=== PATIENT | male | born 1975 | race Caucasian/White ===

== ENCOUNTER 2019-03-22 23:08 | Emergency (ER) | payer OTHER ==
--- NOTE | 2019-03-23 01:31 | ED ---
Abdominal Pain/Male - HPI Summary HPI Summary: This pt is a 43 y/o M presenting to [facility] with a CC of bilateral flank pain which is worse on the L side. He states that the pain radiates across his suprapubic region and his lower back and is rated a 2/10 in severity. He stated that the pain started a couple days prior to 03/23/19 and has not gone away. He states that the pain waxes and wanes throughout the day. He reports that he has had an increase in frequency of urination and that his urine is darker than normal. He denies any fevers, N/V/D, dysuria, and CP. He has no aggravating or alleviating factors. He has a Hx of renal calculi but stated he has not had any for around 10 years. - History of Current Complaint Chief Complaint: EDPrettyin Stated Complaint: FLANK PAIN PER PT Time Seen by Provider: 03/23/19 00:34 Hx Obtained From: Patient Onset/Duration: Gradual Onset, Lasting Days, Still Present Timing: Constant Severity Initially: Moderate Severity Currently: Mild Pain Intensity: 2 Pain Scale Used: 0-10 Numeric Location: Flank - bilateral, worse on the left side Radiates: Yes Radiates to: Back - lower, Other - across the suprapubic region Aggravating Factor(s): Nothing Alleviating Factor(s): Nothing Associated Signs And Symptoms: Positive: Negative - dysuria, Back Pain, Urinary Symptoms - darker and more frequent urine. Negative: Fever, Chest Pain, Nausea , Vomiting, Diarrhea - Allergies/Home Medications Allergies/Adverse Reactions: Allergies Allergy/AdvReac Type Severity Reaction Status Date / Time No Known Allergies Allergy Verified 03/22/19 23:17 PMH/Surg Hx/FS Hx/Imm Hx Previously Healthy: No Infectious Disease History: No Infectious Disease History: Reports: Traveled Outside the [place] in Last 30 Days - [place] - Social History Alcohol Use: Weekly Substance Use Type: Reports: Marijuana Substance Use Comment - Amount & Last Used: occasionally Smoking Status (MU): Never Smoked Tobacco Review of Systems Negative: Fever Positive: Abdominal Pain - suprapubic, radiated from the flanks. Negative: Vomiting, Diarrhea, Nausea Positive: frequency, flank pain, other - urine is darker. Negative: dysuria Positive: Other - radiated low back pain All Other Systems Reviewed And Are Negative: Yes Physical Exam - Summary Physical Exam Summary: VITAL SIGNS: Reviewed. GENERAL: Patient is a well-developed and nourished male who is lying comfortable in the stretcher. Patient is not in any acute respiratory distress. HEAD AND FACE: No signs of trauma. No ecchymosis, hematomas or skull depressions. No sinus tenderness. EYES: PERRLA, EOMI x 2, No injected conjunctiva, no nystagmus. EARS: Hearing grossly intact. Ear canals and tympanic membranes are within normal limits. MOUTH: Oropharynx within normal limits. NECK: Supple, trachea is midline, no adenopathy, no JVD, no carotid bruit, no c- spine tenderness, neck with full ROM CHEST: Symmetric, no tenderness at palpation LUNGS: Clear to auscultation bilaterally. No wheezing or crackles. CVS: Regular rate and rhythm, S1 and S2 present, no murmurs or gallops appreciated. ABDOMEN: Soft, non-tender. No signs of distention. No rebound no guarding, and no masses palpated. Bowel sounds are normal. EXTREMITIES: FROM in all major joints, no edema, no cyanosis or clubbing. NEURO: Alert and oriented x 3. No acute neurological deficits. Speech is normal and follows commands. SKIN: Dry and warm Triage Information Reviewed: Yes Vital Signs On Initial Exam: Initial Vitals Temp Pulse Resp BP Pulse Ox 97.7 F 89 16 196/108 98 03/22/19 23:10 03/22/19 23:10 03/22/19 23:10 03/22/19 23:10 03/22/19 23:10 Vital Signs Reviewed: Yes Diagnostics - Vital Signs Vital Signs Temp Pulse Resp BP Pulse Ox 03/23/19 01:08 98.3 F 140/101 03/22/19 23:10 97.7 F 89 16 196/108 98 - Laboratory Result Diagrams: 03/23/19 01:51 03/23/19 01:51 Lab Statement: Any lab studies that have been ordered have been reviewed, and results considered in the medical decision making process. - CT CT A/P CT Interpretation Completed By: Radiologist Summary of CT Findings: 1. Minimally obstructing 7 mm calculus proximal third left ureter. 2. Left lower lobe pneumonia. ED physician has reviewed this report. Abdominal Pain Male Course/Dx - Course Course Of Treatment: This pt is a 43 y/o M presenting to [facility] with a CC of bilateral flank pain that is more severe on the L side. He states that the pain radiates across his suprapubic region and to his low back. His PE shows that he has no acute processes. His CT A/P showed that he has 1. Minimally obstructing 7 mm calculus proximal third left ureter. 2. Left lower lobe pneumonia. - Diagnoses Provider Diagnoses: Pneumonia, Kidney stones Discharge - Sign-Out/Discharge Documenting (check all that apply): Patient Departure - discharge Patient Received Moderate/Deep Sedation with Procedure: No - Discharge Plan Condition: Stable Disposition: HOME Prescriptions: Levofloxacin TAB* [Levaquin TAB*] 750 mg PO DAILY #7 tab oxyCODONE/Acetamin 5/325 MG* [Percocet 5/325 TAB*] 1 tab PO Q6H PRN #14 tab MDD 4 PRN Reason: Pain Patient Education Materials: Pneumonia (ED), Kidney Stones (ED) Referrals: [facility] [Outside] - 2 Days Sandor Daniel MD [Medical Doctor] - 2 Days Additional Instructions: Please take the medications as directed and follow up with both Dr. Daniel, Urology, and [facility] in 2-3 days. Return to the emergency department with any new or worsening symptoms. - Attestation Statements Document Initiated by Scribe: Yes Documenting Scribe: Erwin Haile Provider For Whom Scribe is Documenting (Include Credential): Nessa Deal MD Scribe Attestation: Erwin Roblero, scribed for Nessa Deal MD on 03/23/19 at 0303. Status of Scribe Document: Ready
[2019-03-23] MEDS ORDERED: NS 0.9% 1000 ML** 1,000 ML IV ONE (01:39)
[2019-03-23 01:41] LABS: Urine Appearance Clear; Urine Bacteria Absent (Absent); Urine Bilirubin Negative (Negative); Urine Blood 2+ (Negative); Urine Color Yellow; Urine Glucose Negative (Negative); Urine Ketones Negative (Negative); Urine Nitrite Negative (Negative); Urine Protein Negative (Negative); Urine Red Blood Cell 3+(>10/hpf) (Absent); Urine Specific Gravity 1.013 (1.010-1.030); Urine Urobilinogen Negative (Negative); Urine White Blood Cell Absent (Absent)
[2019-03-23 01:59] LABS: ABS Eosinophils 0.1 10^3/ul (0-0.6); ABS Lymphocytes 1.9 10^3/ul (1.0-4.8); ABS Monocytes 0.8 10^3/ul (0-0.8); ABS Neutrophils 1.8 10^3/ul (1.5-7.7); Eosinophil % 2.5 %; Hematocrit 46 % (42-52); Hemoglobin 15.8 g/dL (14.0-18.0); Lymphocyte % 40.6 %; Mean Corpuscular HGB Conc 34 g/dL (31-36); Mean Corpuscular Hemoglobin 31 pg (27-31); Mean Corpuscular Volume 91 fL (80-94); Mean Platelet Volume 7.9 fL (7.4-10.4); Nucleated Red Blood Cells % 0.1; Platelet Count 176 10^3/uL (150-450); Red Blood Count 5.08 10^6 /uL (4.18-5.48); Red Cell Distribution Width 13 % (10-15); White Blood Count 4.6 10^3/uL (3.5-10.8)
[2019-03-23 02:17] LABS: Albumin 4.5 g/dL (3.2-5.2); Albumin/Globulin Ratio 1.5 (1-3); BUN/Creatinine Ratio 16.5 (8-20); C Reactive Protein 8.11 mg/L (<8.01); Calcium 9.6 mg/dL (8.6-10.3); EGFR African American 111.1 (>60); EGFR Non-African American 91.8 (>60); Globulin 3.1 g/dL (2-4); Potassium 3.8 mmol/L (3.5-5.0); Total Bilirubin 0.4 mg/dL (0.2-1.0); Total Protein 7.6 g/dL (6.4-8.9)
[2019-03-23 02:49] VITALS: BP 131/92
[2019-03-23] MEDS ORDERED: Levofloxacin TAB* 250 MG PO ONE (03:00)
== END 2019-03-23 03:23 | disposition home or self-care (01) ==
LOC: ED 23:08
DX: J18.9 Pneumonia, unspecified organism (principal); N20.1 Calculus of ureter
CPT/HCPCS: 36415; 74176; 80053; 81003; 81015; 82150; 83690; 85025; 86140; 96360; 99283; A9270-GY

== ENCOUNTER 2019-04-01 21:34 | Emergency (ER) | payer OTHER ==
--- NOTE | 2019-04-01 21:44 | UC ---
Lower Extremity/Ankle HPI - HPI Summary HPI Summary: Fell forward while grilling, L foot ended up underneath him. Pain in ankle and foot, felt toes go out as well. No p/d/w Occurred approx 6:30pm. No other injury. Pain progressed over several hours with foot downwards, prompting visit here. Hurts to bear weight. - History of Current Complaint Stated Complaint: ANKLE INJURY Time Seen by Provider: 04/01/19 21:36 Hx Obtained From: Patient - Allergies/Home Medications Allergies/Adverse Reactions: Allergies Allergy/AdvReac Type Severity Reaction Status Date / Time No Known Allergies Allergy Verified 04/01/19 21:41 PMH/Surg Hx/FS Hx/Imm Hx Previously Healthy: Yes - Family History Known Family History: Positive: None - Social History Alcohol Use: Weekly Substance Use Type: Marijuana Substance Use Comment - Amount & Last Used: occasionally Smoking Status (MU): Never Smoked Tobacco Review of Systems All Other Systems Reviewed And Are Negative: Yes Constitutional: Positive: Negative Skin: Positive: Negative Eyes: Positive: Negative ENT: Positive: Negative Respiratory: Positive: Negative Cardiovascular: Positive: Negative Gastrointestinal: Positive: Negative Genitourinary: Positive: Negative Motor: Positive: Other - see hpi Neurovascular: Positive: Other - see hpi Musculoskeletal: Positive: Other: - see hpi Neurological: Positive: Negative Psychological: Positive: Negative Is Patient Immunocompromised?: No Physical Exam Triage Information Reviewed: Yes Appearance: Well-Appearing, Well-Nourished Vital Signs Reviewed: Yes Eye Exam: Normal ENT Exam: Normal Dental Exam: Normal Neck exam: Normal Respiratory Exam: Normal Cardiovascular Exam: Normal Abdominal Exam: Normal Musculoskeletal Exam: Other - Foot warm to touch, + distal sens LT, good cap refill Tender ankle and dorsal foot, and echymosis L dorsal foot. No prox tib fib tenderness. Neurological Exam: Normal Psychological Exam: Normal Skin Exam: Other - see "musc skel" Lower Extremity Course/Dx - Course Course Of Treatment: Reviewed xrays with pt and renal nurse. No fx noted; however, radiology report n/ y available, d/w pt. Declines cam boot. Crutches, mason / gel splint. Ibuprofen here. 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 Pt has been very active, recently a runner. Will Refer to Sports Med. Also orthopedics (suspect deep foot injury). Questions as posed answered to the best of my ability. Declines work note. - Differential Dx/Diagnosis Provider Diagnosis: Foot sprain, Ankle sprain Discharge - Sign-Out/Discharge Documenting (check all that apply): Patient Departure All imaging exams completed and their final reports reviewed: No - Discharge Plan Condition: Stable Disposition: HOME Prescriptions: Ibuprofen TAB* [Motrin TAB* 600 MG] 600 mg PO Q8H PRN #30 tab PRN Reason: Pain Patient Education Materials: Ankle Sprain (ED), Crutch Instructions (ED), Foot Sprain (ED) Referrals: Jose Antonio Sloan [Medical Doctor] - Karen Deng MD [Primary Care Provider] - Christian Proctor MD [Medical Doctor] - Additional Instructions: Your xray will be read by the radiologist tomorrow. Please stay off your foot as much as possible. Elevate frequently. Follow up with your primary care provider, per routine. Follow up with orthopedic surgeon 1-2 weeks. Sooner if worse or new pain. Follow up with Sports medicine, next available. Seek medical attention for any worse or new issues. - Billing Disposition and Condition Condition: STABLE Disposition: Home
[2019-04-01 21:55] VITALS: BP 142/95
[2019-04-01] MEDS: Ibuprofen TAB* 600 MG PO ONE (22:13)
--- NOTE | 2019-04-02 11:04 | UC ---
- Progress Note Progress Note: RADIOLOGY REPORT REVIEWED. CONFIRMS NO FRACTURE. PATIENT NOTIFIED. NO CHANGE IN MANAGEMENT. Course/Dx - Diagnoses Provider Diagnoses: Foot sprain, Ankle sprain Discharge - Sign-Out/Discharge Documenting (check all that apply): Post-Discharge Follow Up All imaging exams completed and their final reports reviewed: Yes - Discharge Plan Condition: Stable Disposition: HOME Prescriptions: Ibuprofen TAB* [Motrin TAB* 600 MG] 600 mg PO Q8H PRN #30 tab PRN Reason: Pain Patient Education Materials: Ankle Sprain (ED), Crutch Instructions (ED), Foot Sprain (ED) Referrals: Jose Antonio Sloan [Medical Doctor] - Karen Deng MD [Primary Care Provider] - Christian Proctor MD [Medical Doctor] - Additional Instructions: Your xray will be read by the radiologist tomorrow. Please stay off your foot as much as possible. Elevate frequently. Follow up with your primary care provider, per routine. Follow up with orthopedic surgeon 1-2 weeks. Sooner if worse or new pain. Follow up with Sports medicine, next available. Seek medical attention for any worse or new issues. - Billing Disposition and Condition Condition: STABLE Disposition: Home
== END 2019-04-01 22:20 | disposition home or self-care (01) ==
LOC: UCEAST 21:34
DX: S93.402A Sprain of unspecified ligament of left ankle, initial encounter (principal); S96.912A Strain of unspecified muscle and tendon at ankle and foot level, left foot, initial encounter; W19.XXXA Unspecified fall, initial encounter; Y93.G2 Activity, grilling and smoking food; Y92.9 Unspecified place or not applicable
CPT/HCPCS: 99213; A9270-GY; G0463

== ENCOUNTER → 2019-04-12 09:41 | Day surgery (SDC) | payer OTHER ==
--- NOTE | 2019-04-09 09:27 | HP ---
CC: Dr. Karen Deng; Dr. Daniel* ADMITTING HISTORY AND PHYSICAL: DATE OF ADMISSION: 04/12/19 ADMITTING DIAGNOSES: 1. Calculus, left ureter. 2. Left hydronephrosis. PLANNED PROCEDURE: Left ureteroscopy, possible laser, and stent insertion. SURGEON: Dr. Daniel. HISTORY OF PRESENT ILLNESS: Vasyl Elaine is a 43-year-old gentleman who has had episodic left flank pain for the last 2 to 3 weeks secondary to approximately a 7- mm calculus in the left ureter. He has been managed conservatively and on a recent sonogram still had persistent left hydronephrosis. I gave him the option of trying to continue conservative management, but at the present time he would like to go ahead and proceed with left ureteroscopy. I am scheduling this procedure for 4 to 5 days out into the future again to give him more time to hopefully pass the calculus. PAST MEDICAL HISTORY: Significant for hypertension. PAST SURGICAL HISTORY: Negative. MEDICATIONS ON ADMISSION: Analgesics on a p.r.n. basis for the last 2 to 3 weeks. ALLERGIES: No known drug allergies. FAMILY HISTORY: His grandfather and sister have had kidney stones. SOCIAL HISTORY: Smoking history: He is a nonsmoker. REVIEW OF SYSTEMS: He is otherwise in excellent health. There is no history of diabetes mellitus or any other major systemic illness. PHYSICAL EXAMINATION GENERAL: Reveals a pleasant healthy-appearing young gentleman. VITAL SIGNS: Blood pressure is 104/68, pulse 92 per minute and regular, temperature 98.3, oxygen saturation 97% on room air. LUNGS: Clear bilaterally. CARDIOVASCULAR: Regular rate and rhythm. S1, S2. ABDOMEN: Soft with mild left flank tenderness. IMPRESSION: A 43-year-old gentleman with a 2 to 3 week history of episodic left flank discomfort secondary to an approximately 7-mm calculus in the left ureter. PLAN: Planned procedure is left ureteroscopy, possible laser and stent insertion. [id number]/[facility] #: [id number] [facility]
[~2019-04-12 09:41] MED LIST: Buffered Lidocaine 1% SYRIN* 1 ML/SYRINGE INTRADERM ONE; Dexamethasone IV* 4 MG/ML 1 ML (4 MG) IV SLOW PU ONE; Dexamethasone IV* 4 MG/ML 1 ML (4 MG) ONE; DiMENhydriNATE IV* 50 MG/ML VIAL IV PUSH PRN; Famotidine IV* 10 MG/ML 2 ML (20 mg) IV ONE; Famotidine IV* 10 MG/ML 2 ML (20 mg) ONE; Iohexol 180 (CONTRAST) 10 ML SDV IV ONE; Ketorolac INJ* 30 MG/ML 1 ML VIAL IV PRN; Ketorolac INJ* 30 MG/ML 1 ML VIAL ONE; Lactated Ringers 1000 ML Bag* 1,000 ML IV SCH; Midazolam* 1 MG/ML 2 ML VIAL (2 MG) ONE; Naloxone* 0.4 MG/ML 1 ML VIAL IV PRN; Ondansetron INJ* 2 MG/ML VIAL ONE; Propofol* 10 MG/ML 20 ML BTL ONE; Tamsulosin CAP* 0.4 MG ONE; cefTRIAXone(*) 2 GM ADDV.VIAL IVPB ONE; fentaNYL* 50 MCG/ML 2 ML VIAL (100 MCG VIAL) IV PRN; fentaNYL* 50 MCG/ML 2 ML VIAL (100 MCG VIAL) ONE; oxyCODONE/Acetamin 5/325 MG* TAB ONE
[2019-04-12 14:01] VITALS: BP 125/83
--- NOTE | 2019-04-12 15:24 | OP ---
CC: Dr. Karen Deng * DATE OF OPERATION: 04/12/19 - [facility] DATE OF : 79 SURGEON: Sandor Daniel MD ANESTHESIOLOGIST: Dr. Clarke. ANESTHESIA: General. PRE-OP DIAGNOSIS: Calculus, left ureter. POST-OP DIAGNOSIS: Calculus, left ureter. OPERATIVE PROCEDURE: Cystoscopy, left retrograde pyelogram, left ureteroscopy, laser lithotripsy of left ureteral calculus and removal of calculus fragments, and left stent insertion. COMPLICATIONS: None. STENT USED: A 6-Polish stent, left ureter. POSTOPERATIVE CONDITION: Stable. OPERATIVE FINDINGS: Approximately 6 to 7 mm calculus, left distal ureter. INDICATIONS: Vasyl Elaine is a 43-year-old gentleman, who has had episodic left flank pain for the last several weeks secondary to a persistent calculus in the left ureter. DESCRIPTION OF PROCEDURE: After induction of general anesthesia, the patient was placed in dorsal lithotomy position. Sequential compression devices were in place and functioning. Initial cystoscopy revealed a small flap in the ventral part of the bulbar urethra, which may represent minor nonobstructing congenital abnormality. The remainder of the urethra was unremarkable. The bladder was examined and was unremarkable. A guidewire was introduced into the left ureter. Retrograde pyelogram revealed very mild fullness of the left collecting system. A 6-Polish semi-rigid ureteroscope was introduced into the left ureter and advanced under direct vision. About 5 to 6 cm above the ureterovesical junction, 6 to 7 mm fairly sharp edged calculus was noted. Using a 550 micron holmium laser, this was successfully broken up into multiple fragments and all of the sizeable fragments were removed with a grasper and sent for analysis. A 6-Polish stent was introduced and positioned under fluoroscopy with good proximal and distal positioning obtained. The bladder was emptied. The patient tolerated the procedure satisfactorily and was transferred back to the recovery area in stable condition. [id number]/[facility] #: [id number] [facility]
== END | disposition home or self-care (01) ==
LOC: OR 09:41
PROVIDERS: ATTEND Urology
DX: N20.1 Calculus of ureter (principal); N13.30 Unspecified hydronephrosis; I10 Essential (primary) hypertension
CPT/HCPCS: 74420; 82365; 88300; A9270-GY; C1876; J0696; J1100; J1885; J2250; J2405; J2704; J3010